=== PATIENT | male | born 1960 | race Hispanic/Latino ===

== ENCOUNTER 2018-05-26 12:18 | Outpatient (CLI) | payer OTHER | END 2018-05-26 12:19 | disposition home or self-care (01) | LOC: BICULT 12:18 | PROVIDERS: ATTEND Family Medicine | DX: R22.1 Localized swelling, mass and lump, neck (principal); K11.8 Other diseases of salivary glands | CPT/HCPCS: 76536 ==

== ENCOUNTER 2018-06-10 16:05 | Outpatient (CLI) | payer OTHER ==
[~2018-06-10 16:05] MED LIST: ISOVUE-370 76%-LOCM 1 ML ONE
== END 2018-06-10 16:06 | disposition home or self-care (01) ==
LOC: BICCT 16:05
PROVIDERS: ATTEND Otolaryngology Otolaryngic Allergy
DX: R22.1 Localized swelling, mass and lump, neck (principal); E21.3 Hyperparathyroidism, unspecified
CPT/HCPCS: 70491

== ENCOUNTER 2024-11-27 08:26 | Day surgery (SDC) | payer BC ==
[2024-11-27] MEDS ORDERED: fentaNYL 50 mcg/mL 1 mL Vial ONE (08:38)
[2024-11-27] MEDS ORDERED: Lidocaine 1% PF 5 ML VIAL ONE (08:38)
[2024-11-27] MEDS ORDERED: Midazolam HCl 2 mg/2 ml Vial ONE (08:38)
[2024-11-27] MEDS ORDERED: Lidocaine 1% w/Epinephrine 1:100K 20 ML VIAL ONE (08:38)
[2024-11-27] MEDS ORDERED: Sodium Bicarbonate 2.5 MEQ/5 ML SDV ONE (08:39)
[2024-11-27 08:45] LABS: #Basophils 0.05 10x3/uL (0.0-0.2); %Eosinophils 2.9 % (0.0-10.0); %Lymphocytes 44.2 % (21.0-51.0); %Monocytes 15.7 % (0.0-10.0); Hematocrit 41.4 % (42.0-52.0); Hemoglobin 13.6 g/dL (14.0-18.0); Mean Corpuscular HGB CONC 32.9 g/dL (32.0-36.0); Mean Corpuscular Hemoglobin 32.5 pg (27.0-31.0); Mean Platelet Volume 10.5 fL (7.4-10.4); Platelet Count 258 10x3/uL (130-400); Red Blood Cell (RBC) Count 4.18 mill/uL (4.70-6.10)
[2024-11-27 09:01] LABS: INR-International Normal Ratio 1.1; PTT 24.9 sec (22.9-36.1); Prothrombin Time 13.9 sec (12.0-14.7)
== END 2024-11-27 11:45 | disposition home or self-care (01) ==
LOC: CT 08:26
PROVIDERS: ATTEND Internal Medicine Hematology & Oncology
PROC: 07DR3ZX Extraction of Iliac Bone Marrow, Percutaneous Approach, Diagnostic (ICD-10-PCS; principal; 2024-11-27)
DX: D75.89 Other specified diseases of blood and blood-forming organs (principal); D47.2 Monoclonal gammopathy; I10 Essential (primary) hypertension; E78.2 Mixed hyperlipidemia; Z87.891 Personal history of nicotine dependence; Z79.899 Other long term (current) drug therapy
CPT/HCPCS: 38222; 77012; 85025; 85097; 85610; 85730; 88184; 88237; 88305; 88311; 88313; 88341; 88342; 88365; J2250; J3010

== ENCOUNTER 2024-12-19 04:21 | Emergency (ER) | payer BC ==
[2024-12-19] MEDS ORDERED: Morphine 4 MG/ML VIAL ONE (04:41)
[2024-12-19] MEDS ORDERED: Ondansetron PF 4 MG/2 ML Vial ONE (04:41)
[2024-12-19 05:22] LABS: #Basophils 0.03 10x3/uL (0.0-0.2); %Basophils 0.6 % (0.0-1.0); %Eosinophils 2.7 % (0.0-10.0); %Lymphocytes 43.2 % (21.0-51.0); %Monocytes 12.5 % (0.0-10.0); Hematocrit 38.8 % (42.0-52.0); Hemoglobin 13.3 g/dL (14.0-18.0); Mean Corpuscular HGB CONC 34.3 g/dL (32.0-36.0); Mean Corpuscular Hemoglobin 32.4 pg (27.0-31.0); Mean Corpuscular Volume 94.6 fL (78.0-98.0); Mean Platelet Volume 11.4 fL (7.4-10.4); Platelet Count 289 10x3/uL (130-400); RBC Distribution Width 13.5 % (11.5-14.5)
[2024-12-19 05:31] LABS: PTT 25.8 sec (22.9-36.1); Prothrombin Time 13.2 sec (12.0-14.7)
[2024-12-19 05:40] LABS: ALT (SGPT) 15 U/L (Less than 45); AST (SGOT) 20 U/L (11-34); Albumin 3.2 g/dL (3.1-4.5); Alkaline Phosphatase 97 U/L (40-110); Anion Gap 14 mmol/L (10-20); BUN (Urea Nitrogen) 13 mg/dL (8.4-25.7); Bilirubin, Total 0.2 mg/dL (0.3-1.2); Calc. Creatinine Clearance 0 mL/min (70-130); Calcium 10.3 mg/dL (7.8-10.44); Carbon Dioxide 22 mmol/L (23-31); Chloride 106 mmol/L (98-107); Estimated GFR 98; Glucose 114 mg/dL (80-115); Lipase 24 U/L (8-78); Magnesium 2.3 mg/dL (1.6-2.6); Potassium 4.2 mmol/L (3.5-5.1); Protein, Total 8.2 g/dL (5.8-8.1); Sodium 138 mmol/L (136-145)
[2024-12-19 05:43] LABS: Troponin I Less than 0.010 ng/mL (< 0.028)
[2024-12-19] MEDS ORDERED: fentaNYL 50 mcg/mL 1 mL Vial ONE (06:15)
[2024-12-19 07:44] LABS: Bacteria/HPF None Seen HPF (None Seen); Bilirubin Negative (Negative); Blood, Urine Negative (Negative); CAUTI Indications for Culture Pelvic or flank pain; Clarity Clear (Clear); Glucose, Urine (Dipstick) Normal (Negative); Ketone, Urine Negative (Negative); Leukocyte Negative Leu/uL (Negative); Nitrite Negative (Negative); Protein, Urine (Dipstick) Negative (Neg-Trace); RBC/HPF 0-3 HPF (0-3); Specific Gravity, Urine 1.015 (1.002-1.036); Squamous Epithelial None Seen HPF (0-3); Urobilinogen Normal mg/dL (Less than 2); WBC/HPF 0-3 HPF (0-3); pH, Urine 5.5 (5.0-9.0)
[2024-12-19 07:48] LABS: Urine Culture Reflex No No
[2024-12-19] MEDS ORDERED: Iopamidol 370 76% 100 ML VIAL ONE (11:45)
== END 2024-12-19 08:16 | disposition home or self-care (01) ==
LOC: ERS 04:21
DX: K76.0 Fatty (change of) liver, not elsewhere classified (principal); R05.9 Cough, unspecified; R11.0 Nausea; I10 Essential (primary) hypertension; E78.00 Pure hypercholesterolemia, unspecified; Z79.899 Other long term (current) drug therapy
CPT/HCPCS: 71045; 71260; 74176; 76705; 80053; 81001; 83690; 83735; 83880; 84484; 85025; 85610; 85730; 93005; 96374; 96375; J2270; J2405; J3010